=== PATIENT | female | born 1985 | race Caucasian/White ===

== ENCOUNTER 2016-06-11 13:34 | Emergency (ER) | payer OTHER ==
--- NOTE | 2016-06-11 16:31 | DIAGNOSTIC IMAGING REPORT ---
PROCEDURE: US OB 1ST TRIMESTER W/TRANSVAG INDICATION: PAIN TECHNIQUE: Savage scale, color, and spectral Doppler transabdominal and endovaginal sonographic images of the first trimester gravid uterus were obtained. COMPARISON: None. FINDINGS: TRANSABDOMINAL SCANS: Normal kidneys. No pelvic mass. TRANSVAGINAL SCANS: The uterus measures 7 x 4 x 5.6 cm. Endometrium measures 10 mm and is avascular. No evidence of a gestational sac or pole. 1.9 cm left ovarian corpus luteum cyst. Right ovary measures 2.7 x 1.3 x 2.1 cm with peripheral follicles. There is vascular flow to both ovaries. No free fluid the cul-de-sac. IMPRESSION: 1. No evidence of an intrauterine gestational sac or adnexal mass. Correlate with Beta hCG.
--- NOTE | 2016-06-11 16:45 | ED ORDER SUMMARY ---
..... Patient: SAMI ARANDA OrderSheet [facility] VisitID: [id number] [address] [place] [address] 31y, F Registration Date/Time: 06/11/2016 ORDER SHEET Weight: 77.1 kg (stated) Allergies: No Known Drug Allergy GENERAL ORDERS: Wet Prep (Cervix) (cervix) Urgent (13:53 06/11/2016 Veto STRICKLAND) (Ack 13:59 LTapper) (15:31 LSshaunivan R.N.) GC/Chlamydia (Cervix) (cervix) Urgent (13:53 06/11/2016 Veto STRICKLAND) (Ack 13:59 LTapper) (15:31 LSshaunivan R.N.) CBC w Diff Urgent (13:55 06/11/2016 Veto STRICKLAND) (Ack 13:59 LTapper) (18:23 Valentin R.N.) CMP Urgent (13:55 06/11/2016 Veto STRICKLAND) (Ack 13:59 LTapper) (14:17 Danial R.N.) UA-Culture if indicated Urgent (13:55 06/11/2016 Veto STRICKLAND) (Ack 13:59 LTapper) (14:17 Danial R.N.) PT with INR Urgent (13:55 06/11/2016 Veto STRICKLAND) (Ack 13:59 LTapper) (14:17 Danial R.N.) PTT Urgent (13:55 06/11/2016 Veto STRICKLAND) (Ack 13:59 LTapper) (14:17 Danial R.N.) Amylase Urgent (13:55 06/11/2016 Veto STRICKLAND) (Ack 13:59 LTapper) (14:17 Danial R.N.) Lipase Urgent (13:55 06/11/2016 Veto STRICKLAND) (Ack 13:59 LTapper) (14:17 Danial R.N.) Type & Rh Urgent (13:55 06/11/2016 Veto STRICKLAND) (Ack 13:59 LTapper) (14:17 Danial R.N.) Serum Quantitative Urgent (13:55 06/11/2016 Veto STRICKLAND) (Ack 13:59 LTapper) (14:17 Danial PeaceN.) Pelvic Exam Setup (13:55 06/11/2016 Veto STRICKLAND) (14:16 Danial Anguiano) US OB 1st Trimester w Transvag (25 April 2016) Urgent (15:26 06/11/2016 Veto STRICKLAND) (15:29 LTapper) MEDICATION ORDERS: IV FLUIDS: IV Saline Lock (13:55 06/11/2016 Veto STRICKLAND) (Ack 14:06 Danial R.N.) (15:06 DDcoty R.N.) Dilaudid IV 0.5 mg (HIGH ALERT MEDICATION, NOW) (14:57 06/11/2016 Veto STRICKLAND) (15:06 DDeaanthony R.N.) Zofran IV 4 mg (NOW) (14:57 06/11/2016 Veto STRICKLAND) (15:06 DDean R.N.) ORDER SHEET NOTES: [Electronically signed by Jazmyn Gonzalez R.N. (18:23 06/11/2016)] [Electronically signed by Juan Francisco Abdi MD (23:19 06/15/2016)] [Electronically locked/signed by Jazmyn Gonzalez R.N. (18:23 06/11/2016)]
--- NOTE | 2016-06-11 16:45 | ED NURSING NOTES ---
Clinical Report - Nurses [facility] [address] [place] [place] [address] 06/11/2016 13:38 Patient: SAMI ARANDA TRIAGE Triage time 13:49. Acuity: LEVEL 3. Chief Complaint: ABDOMINAL PAIN and SPOTTING. Alert. No acute distress. ( Pt. states, " I am having a miscarrage. This started on tue and I already saw my doctor for it, but I am here because of the cramping."). SEPSIS SCREEN: Sepsis Screen. Negative (no infection suspected/documented). RAHAT COMA SCORE: Rahat Coma Scale: 15- eyes open spontaneously (4); best verbal response- oriented x 4 (5); best motor response- obeys commands (6). --13:53 Rhonda Ware R.N. 13:47 06/11/16. BP: 141/90. HR: 84. RR: 15. O2 saturation: 100%. Temp: 98.1 F. Pain level now: 8/10. It has been waxing/waning. --13:53 Rhonda Ware R.N. Weight: 77.1 kg stated. Height/Length: 67 inches Per Patient. BMI: 26.6. --13:48 Rhonda Ware R.N. Medications Zoloft Oral 50 mg, daily. --13:51 Rhonda Ware R.N. TraZODone HCl Oral 25mg , at bedtime. --13:51 Rhonda Ware R.N. Allergies No Known Drug Allergy. --13:51 Rhonda Ware R.N. History Arrived by private vehicle. Historian: patient. Unaccompanied. Primary physician (Murali). Onset. (2 days ago). Treatment RADIO DISPATCHER: (advil around 0600 today). PAST MEDICAL HX: Immunizations: up-to-date. OB history: G 3; P 1; Ab 2. SOCIAL HX: Smoker- current status unknown. History of drug use. (hx of of opioid addiction: pt states, "I have been clean for 10 years."). No alcohol use. No infectious disease exposure. ABUSE ASSESSMENT: No report of abuse. NUTRITIONAL RISK ASSESSMENT: The nutritional risk assessment revealed no deficiencies. FUNCTIONAL ASSESSMENT: Functional assessment: no impairments noted. LEARNING NEEDS ASSESSMENT: The learning needs assessment revealed no barriers. --13:53 Rhonda Ware R.N. PROBLEMS: Contusion. --13:51 Rhonda Ware R.N. Insomnia. --13:51 Rhonda Ware R.N. ADDITIONAL SURGERIES: . Dental Surgery. --13:52 Rhonda Ware R.N. Interventions ID band on patient. Ambulatory. --13:53 Rhonda Ware R.N. PHYSICAL ASSESSMENT Ambulatory to room. GENERAL / NEURO / PSYCH: Alert. Appears in no acute distress. HEENT: Mucous membranes are pink. RESPIRATORY: Respirations not labored. CVS: Capillary refill less than 2 seconds. GI / : Abdomen soft and nontender. SKIN: Skin is warm and dry. --13:54 Rhonda Ware R.N. NURSING PROGRESS NOTES Patient gowned. Two patient identifiers checked. Call light placed in reach. Side rails up x 2. Bed placed in lowest position. Brakes of bed on. Patient ready for evaluation- chart flagged. --13:54 Rhonda Ware R.N. 14:16 06/11/2016 Site #1 started via IV in the right antecubital space with an 20g angiocath, with aseptic technique and good blood return; one attempt. Blood drawn: rainbow set. Labeled in the presence of the patient and sent to the lab. Saline lock flushed with 10 mL saline. --14:16 Rhonda Ware R.N. Patient ID band checked for patient name, birthdate and medical record number: patient confirmed. Instructions provided to collect clean catch urine and patient verbalized understanding. Clean catch urine collected with return of yellow-colored clear urine; sample sent to lab for urinalysis. Specimen labeled in the presence of the patient. --14:16 Rhonda Ware R.N. 15:06 06/11/2016 Dilaudid (HYDROmorphone HCl PF) IVP 0.5 mg given over 1 minute(s) via site #1. Sedative warning given to the patient. IV patency established. IV site checked: no pain, redness, or swelling. IV flushed thoroughly pre- and post-medication administration. IVP given by RN. --15:06 Charo Cesar R.N. 15:06 06/11/2016 Zofran (Ondansetron HCl) IVP 4 mg given over 1 minute(s) via site #1. IV patency established. IV site checked: no pain, redness, or swelling. IV flushed thoroughly pre- and post-medication administration. IVP given by RN. --15:06 Charo Cesar R.N. 15:30 06/11/16. PELVIC EXAM: Pelvic exam performed by ED physician. Assisted by one nurse. Preparation: pelvic tray; patient placed in lithotomy position. Procedure. Specimens collected and sent to lab: chlamydia and wet prep. Status post-procedure: she was stable. Total time of assist / procedure: 15 minutes. --15:30 Cat Callahan R.N. 15:49 06/11/2016 Dilaudid (HYDROmorphone HCl PF) IVP 0.5 mg given over 1 minute(s) via site #1. Confirmed 5 rights and sedative warning given to the patient. IV flushed thoroughly pre- and post-medication administration (verbal order from Dr Abdi). --15:49 Cat Callahan R.N. 15:49 06/11/16. ( ULTRASOUND IN ROOM). --15:49 Cat Callahan R.N. Patient informed about reason for wait and about plan of care. --16:29 Rhonda Ware R.N. 16:29 06/11/16. BP: 128/83. HR: 75. RR: 16. O2 saturation: 97%. Pain level now 4/10. --16:29 Rhonda Ware R.N. 16:50. Reassessment after procedure. She is resting quietly. Overall patient status is the same- she states feels the same. SKIN: Skin is warm and dry. --16:58 Jazmyn Gonzalez R.N. DISPOSITION / DISCHARGE Departure time: 1650. Condition at departure: stable. No learning barriers present. Discharge instructions provided and reviewed with the patient and spouse. Reviewed medication(s). Prescription(s) given to the patient. Patient and spouse verbalized understanding. Written instructions provided in [place]. The patient was discharged home and accompanied by spouse. She left the Emergency Department ambulatory and via private vehicle. Spouse driving. FALL RISK ASSESSMENT: Fall risk assessment completed. No fall risk identified. --16:57 Jazmyn Gonzalez R.N. 16:55 06/11/16. BP: 119/78. HR: 82. RR: 18. O2 saturation: 96%. Pain level now: 0/10. --16:57 Jazmyn Gonzalez R.N. 16:50 06/11/2016 Site #1 removed upon discharge. Catheter intact. Bandaid applied. --16:58 Jazmyn Gonzalez R.N. Locked/Released at 06/11/2016 18:23 by Jazmyn Gonzalez R.N.
--- NOTE | 2016-06-11 16:45 | ED CLINICAL REPORT ---
Clinical Report - Physicians/Mid Levels [facility] [address] [place] [address] 06/11/2016 13:38 Patient: SAMI ARANDA Time Seen: 13:52. Arrived- By private vehicle. Historian- patient. HISTORY OF PRESENT ILLNESS Chief Complaint: PELVIC PAIN and VAGINAL BLEEDING. This started about 2 days ago and still present. It was gradual in onset and has been constant and waxing/waning. The symptoms are described as moderate. The patient has had severe, dull, crampy pelvic pain (since this morning). She has had mild lower back pain and abnormal bleeding. No pain with urination, urinary frequency, urgency of urination or hematuria. Last normal menstrual period- 25 Apr 2016. Does not use control measures. (The patient believes that she is having a miscarriage. Yesterday she noticed some vaginal bleeding and says that she "saw the baby." However, she is concerned today because her pain became much more pronounced and severe.). Currently . In 1st trimester. Recently diagnosed. Has had care by private doctor. G 3. P 1. Receiving care. REVIEW OF SYSTEMS No chills, fever, sweats, calf pain or chest pain. No cough, difficulty breathing, pedal edema, palpitations or black stools. No bloody stools, constipation, diarrhea, nausea or vomiting. No urinary problems. All systems otherwise negative, except as recorded above. PAST HISTORY Problems: Melanoma. Insomnia. OB History. Contusion. Additional Surgeries: . Dental Surgery. L axiallary lymph node biopsy. Melanoma resection L breast. Medications: TraZODone HCl Oral 25mg , at bedtime. Zoloft Oral 50 mg, daily. Allergies: No Known Drug Allergy. SOCIAL HISTORY Never smoker. History of drug use "clean for 10 years". Is a recovering addict. No alcohol use. She lives with spouse. Has good social support. FAMILY HISTORY No significant family medical history. ADDITIONAL NOTES The nursing notes have been reviewed. PHYSICAL EXAM Vital Signs: 06/11/2016 13:47 BP: 141/90. HR: 84. RR: 15. O2 saturation: 100%. Temp: 98.1 F. Pain level now: 12/02. Have been reviewed. Appearance: Alert. ENT: Pharynx normal. Neck: Neck supple. CVS: Heart sounds normal. Respiratory: No respiratory distress. Breath sounds normal. Abdomen: Soft and nontender. Bowel sounds normal. No organomegaly. No mass. Back: Normal external inspection. No CVA tenderness. : External inspection normal. Moderate vaginal bleeding, consisting of bright red blood, via the cervical os. No cervical dilation. Moderate right adnexal tenderness. No cervical motion tenderness. (female third mate present). Skin: Skin warm and dry. Normal skin color. Normal skin turgor. Extremities: No calf tenderness. No lower extremity edema. LABS, X-RAYS, AND EKG Pelvic Sonogram: No cardiac activity visualized. A cyst in the left ovary is present. discussed with the US tech. No intrauterine . The study was independently viewed by me. Laboratory Tests: UA-Culture if indicated: (RYAN: 06/11/2016 14:10) ( [facility] 06/11/[place] 14:42) Final results Test Result Flag Units (Reference) URINE COLOR YELLOW URINE APPEARANCE CLEAR URINE GLUCOSE NEGATIVE (NEGATIVE) URINE BILIRUBIN NEGATIVE (NEGATIVE) URINE KETONE NEGATIVE (NEGATIVE) URINE SPECIFIC GRAVITY <= 1.005 L (1.010-1.030) URINE PH 5.5 (5.0-8.0) URINE PROTEIN NEGATIVE (NEGATIVE) URINE UROBILINOGEN 0.2 EU/dL (0.2-1.0) URINE NITRITE NEGATIVE (NEGATIVE) URINE BLOOD 2+ (NEGATIVE) URINE LEUK ESTERASE NEGATIVE (NEGATIVE) URINE RBC 1-3 rbc/hpf (0-1) URINE WBC NONE SEEN wbc/hpf (0-1) URINE EPITHELIAL CELLS 1-3 EPI/hpf (0-5) URINE BACTERIA NONE SEEN (NONE SEEN) URINE COMMENT CULT NOT INDICATED URINE CULTURES ARE SET-UP BASED ON THE FOLLOWING CRITERIA:POSITIVE NITRITEPOSITIVE LEUKOCYTE ESTERASEGREATER THAN 10 WHITE BLOOD CELLSMODERATE (2+) OR GREATER BACTERIA CBC w Diff: (RYAN: 06/11/2016 14:10) ( [facility] 06/11/2016 14:23) Final results Test Result Flag Units (Reference) WHITE BLOOD COUNT 5.8 K/uL (4.5-11.5) RED BLOOD COUNT 4.40 M/uL (4.00-5.20) HEMOGLOBIN 13.3 gm/dL (12.0-16.0) HEMATOCRIT 39.2 % (36.0-46.0) MEAN CELL VOLUME 89 fL (80-100) MEAN CORPUSCULAR HGB 30 pg (26-34) MEAN CORPUSCULAR HGB CONC 34 g/dL (31-37) RED CELL DISTRIBUTION WIDTH 12.6 % (11.6-14.8) PLATELET COUNT 246 K/uL (150-400) NEUTROPHIL % 51.7 % (50-75) LYMPH % 38.5 % (25-40) MONO % 6.6 % (3-14) EOSINOPHIL % 2.5 % (0-4) BASOPHIL % 0.7 % (0-2) PT with INR: (RYAN: 06/11/2016 14:10) ( [facility] 06/11/2016 14:29) Final results Test Result Flag Units (Reference) INR 0.9 (0.8-1.2) Low Intensity Therapy: INR 1.5-2.0 PT range 18.5-23.1Mod.Intensity Therapy: INR 2.0-3.0 PT range 23.1-31.5High Intensity Therapy: INR 2.5-3.5 PT range 27.4-35.5High Intensity Therapy 2: INR 3.0-4.0 PT range 31.5-39.3 APTT 27 SECONDS (24-34) CMP: (RYAN: 06/11/2016 14:10) ( [facility] 06/11/2016 14:44) Final results Test Result Flag Units (Reference) GLUCOSE 89 mg/dL (70-110) BUN 6 L mg/dL (7-18) CREATININE 0.6 mg/dL (0.6-1.3) Estimated GFR >60 mL/min Estimated GFR- >60 mL/min Note: Persistent reduction over 3 months in eGFR<60 mL/min/1.73 m2 defines CKD. Patients with eGFR values>=60 mL/min/1.73 m2 may also have CKD if evidence ofpersistent proteinuria. Additional information may be foundat www.kidney.org. SODIUM 141 mmol/L (136-145) POTASSIUM 3.7 mmol/L (3.5-5.1) CHLORIDE 105 mmol/L (98-107) CARBON DIOXIDE 25 mmol/L (21-32) CALCIUM 9.0 mg/dL (8.5-10.1) TOTAL PROTEIN 7.4 g/dL (6.4-8.2) ALBUMIN 4.1 g/dL (3.3-5.0) BILIRUBIN, TOTAL 0.4 mg/dL (0.0-1.0) ALKALINE PHOSPHATASE 67 U/L (46-116) AST (SGOT) 19 U/L (15-37) ALT (SGPT) 31 U/L (12-78) LIPASE 224 U/L (73-393) AMYLASE 52 U/L (25-115) BETA HCG, QUANTITATIVE 669 mIU/mL REFERENCE RANGE:Adult Males: <2 mIU/mLNon- Females: <6 mIU/mL Females:Approximate Approximate hCGGestational Age Range (mIU/mL) 0-1 week 0-501-2 weeks 40-3002-3 weeks 100-19562-1 weeks 500-86687-9 months 5,000-200,0002-3 months 10,000-100,0002nd trimester 3,000-50,0003rd trimester 1,000-50,000 Wet Prep: (RYNA: 06/11/2016 15:24) ( [facility] 06/11/2016 15:42) Final results SPECIMEN DESCRIPTION: CERVIX Test Result Flag Units (Reference) WET MOUNT CLUE CELLS:: NONE EPITHELIAL CELLS: MODERATE -- SOURCE?: CERVIX WHITE BLOOD CELLS: NONE TRICHOMONAS:: NONE -- YEAST:: NONE Type & Rh: (RYAN: 06/11/2016 14:10) ( [facility] 06/11/2016 14:35) Final results Test Result Flag Units (Reference) PATIENT BLOOD TYPE B Positive . PROGRESS AND PROCEDURES Course of Care: Dr. Pérez says that her quantitative hCG was 2483 yesterday. He also says that she has not had an ultrasound during this . Patient is stable. Discussed case with on-call health care provider, (Dr. Pérez for [facility]). Reviewed test results and need for additional work-up. Agreed upon treatment plan and need for patient follow-up. Health care provider will see patient in office. Refers case to other health care provider. Patient/family counseled. Old medical records ordered. Disposition: Discharged. Condition: stable. CLINICAL IMPRESSION Complete spontaneous (miscarriage). INSTRUCTIONS No driving or operating machinery while taking medication. Sedative medication was given during your visit. Drink plenty of fluids. Warnings: Further evaluation is necessary. GENERAL WARNINGS: Return or contact your physician immediately if your condition worsens or changes unexpectedly, if not improving as expected, or if other problems arise. Prescription Medications: Tylenol with Codeine #3 (30 mg / 300 mg): take 1 tablet every 4 hours as needed for pain. Dispense fifteen (15). No refills. Substitution is permissible. Follow-up: Follow up with your doctor Dr. Gabriella Carrion - [address] [place] [id number] Phone: Tuesday in three days. Call for an appointment. Understanding of the discharge instructions verbalized by patient. (Electronically signed by Juan Francisco Abdi MD 06/15/2016 23:19)
--- NOTE | 2016-06-11 16:45 | ED ORDER SUMMARY ---
..... Patient: SAMI ARANDA OrderSheet [facility] VisitID: [id number] [address] [place] [address] 31y, F Registration Date/Time: 06/11/2016 ORDER SHEET Weight: 77.1 kg (stated) Allergies: No Known Drug Allergy GENERAL ORDERS: Wet Prep (Cervix) (cervix) Urgent (13:53 06/11/2016 Veto STRICKLAND) (Ack 13:59 LTapper) (15:31 LSshaunivan R.N.) GC/Chlamydia (Cervix) (cervix) Urgent (13:53 06/11/2016 Veto STRICKLAND) (Ack 13:59 LTapper) (15:31 LSshaunivan R.N.) CBC w Diff Urgent (13:55 06/11/2016 Veto STRICKLAND) (Ack 13:59 LTapper) (18:23 Valentin R.N.) CMP Urgent (13:55 06/11/2016 Veto STRICKLAND) (Ack 13:59 LTapper) (14:17 Danial R.N.) UA-Culture if indicated Urgent (13:55 06/11/2016 Veto STRICKLAND) (Ack 13:59 LTapper) (14:17 Danial R.N.) PT with INR Urgent (13:55 06/11/2016 Veto STRICKLAND) (Ack 13:59 LTapper) (14:17 Danial R.N.) PTT Urgent (13:55 06/11/2016 Veto STRICKLAND) (Ack 13:59 LTapper) (14:17 Danial R.N.) Amylase Urgent (13:55 06/11/2016 Veto STRICKLAND) (Ack 13:59 LTapper) (14:17 Danial R.N.) Lipase Urgent (13:55 06/11/2016 Veto STRICKLAND) (Ack 13:59 LTapper) (14:17 Danial R.N.) Type & Rh Urgent (13:55 06/11/2016 Veto STRICKLAND) (Ack 13:59 LTapper) (14:17 Danial R.N.) Serum Quantitative Urgent (13:55 06/11/2016 Veto STRICKLAND) (Ack 13:59 LTapper) (14:17 Danial PeaceN.) Pelvic Exam Setup (13:55 06/11/2016 Veto STRICKLAND) (14:16 Danial Anguiano) US OB 1st Trimester w Transvag (25 April 2016) Urgent (15:26 06/11/2016 Veto STRICKLAND) (15:29 LTapper) MEDICATION ORDERS: IV FLUIDS: IV Saline Lock (13:55 06/11/2016 Veto STRICKLAND) (Ack 14:06 Danial R.N.) (15:06 DDcoty R.N.) Dilaudid IV 0.5 mg (HIGH ALERT MEDICATION, NOW) (14:57 06/11/2016 Veto STRICKLAND) (15:06 DDeaanthony R.N.) Zofran IV 4 mg (NOW) (14:57 06/11/2016 Veto STRICKLAND) (15:06 DDean R.N.) ORDER SHEET NOTES: [Electronically signed by Jazmyn Gonzalez R.N. (18:23 06/11/2016)] [Electronically signed by Juan Francisco Abdi MD (23:19 06/15/2016)] [Electronically locked/signed by Jazmyn Gonzalez R.N. (18:23 06/11/2016)]
--- NOTE | 2016-06-11 16:45 | ED CLINICAL REPORT ---
Clinical Report - Physicians/Mid Levels [facility] [address] [place] [address] 06/11/2016 13:38 Patient: SAMI ARANDA Time Seen: 13:52. Arrived- By private vehicle. Historian- patient. HISTORY OF PRESENT ILLNESS Chief Complaint: PELVIC PAIN and VAGINAL BLEEDING. This started about 2 days ago and still present. It was gradual in onset and has been constant and waxing/waning. The symptoms are described as moderate. The patient has had severe, dull, crampy pelvic pain (since this morning). She has had mild lower back pain and abnormal bleeding. No pain with urination, urinary frequency, urgency of urination or hematuria. Last normal menstrual period- 25 Apr 2016. Does not use control measures. (The patient believes that she is having a miscarriage. Yesterday she noticed some vaginal bleeding and says that she "saw the baby." However, she is concerned today because her pain became much more pronounced and severe.). Currently . In 1st trimester. Recently diagnosed. Has had care by private doctor. G 3. P 1. Receiving care. REVIEW OF SYSTEMS No chills, fever, sweats, calf pain or chest pain. No cough, difficulty breathing, pedal edema, palpitations or black stools. No bloody stools, constipation, diarrhea, nausea or vomiting. No urinary problems. All systems otherwise negative, except as recorded above. PAST HISTORY Problems: Melanoma. Insomnia. OB History. Contusion. Additional Surgeries: . Dental Surgery. L axiallary lymph node biopsy. Melanoma resection L breast. Medications: TraZODone HCl Oral 25mg , at bedtime. Zoloft Oral 50 mg, daily. Allergies: No Known Drug Allergy. SOCIAL HISTORY Never smoker. History of drug use "clean for 10 years". Is a recovering addict. No alcohol use. She lives with spouse. Has good social support. FAMILY HISTORY No significant family medical history. ADDITIONAL NOTES The nursing notes have been reviewed. PHYSICAL EXAM Vital Signs: 06/11/2016 13:47 BP: 141/90. HR: 84. RR: 15. O2 saturation: 100%. Temp: 98.1 F. Pain level now: 12/02. Have been reviewed. Appearance: Alert. ENT: Pharynx normal. Neck: Neck supple. CVS: Heart sounds normal. Respiratory: No respiratory distress. Breath sounds normal. Abdomen: Soft and nontender. Bowel sounds normal. No organomegaly. No mass. Back: Normal external inspection. No CVA tenderness. : External inspection normal. Moderate vaginal bleeding, consisting of bright red blood, via the cervical os. No cervical dilation. Moderate right adnexal tenderness. No cervical motion tenderness. (female donor services coordinator present). Skin: Skin warm and dry. Normal skin color. Normal skin turgor. Extremities: No calf tenderness. No lower extremity edema. LABS, X-RAYS, AND EKG Pelvic Sonogram: No cardiac activity visualized. A cyst in the left ovary is present. discussed with the US tech. No intrauterine . The study was independently viewed by me. Laboratory Tests: UA-Culture if indicated: (RYAN: 06/11/2016 14:10) ( [facility] 06/11/2016 14:42) Final results Test Result Flag Units (Reference) URINE COLOR YELLOW URINE APPEARANCE CLEAR URINE GLUCOSE NEGATIVE (NEGATIVE) URINE BILIRUBIN NEGATIVE (NEGATIVE) URINE KETONE NEGATIVE (NEGATIVE) URINE SPECIFIC GRAVITY <= 1.005 L (1.010-1.030) URINE PH 5.5 (5.0-8.0) URINE PROTEIN NEGATIVE (NEGATIVE) URINE UROBILINOGEN 0.2 EU/dL (0.2-1.0) URINE NITRITE NEGATIVE (NEGATIVE) URINE BLOOD 2+ (NEGATIVE) URINE LEUK ESTERASE NEGATIVE (NEGATIVE) URINE RBC 1-3 rbc/hpf (0-1) URINE WBC NONE SEEN wbc/hpf (0-1) URINE EPITHELIAL CELLS 1-3 EPI/hpf (0-5) URINE BACTERIA NONE SEEN (NONE SEEN) URINE COMMENT CULT NOT INDICATED URINE CULTURES ARE SET-UP BASED ON THE FOLLOWING CRITERIA:POSITIVE NITRITEPOSITIVE LEUKOCYTE ESTERASEGREATER THAN 10 WHITE BLOOD CELLSMODERATE (2+) OR GREATER BACTERIA CBC w Diff: (RYAN: 06/11/2016 14:10) ( [facility] 06/11/2016 14:23) Final results Test Result Flag Units (Reference) WHITE BLOOD COUNT 5.8 K/uL (4.5-11.5) RED BLOOD COUNT 4.40 M/uL (4.00-5.20) HEMOGLOBIN 13.3 gm/dL (12.0-16.0) HEMATOCRIT 39.2 % (36.0-46.0) MEAN CELL VOLUME 89 fL (80-100) MEAN CORPUSCULAR HGB 30 pg (26-34) MEAN CORPUSCULAR HGB CONC 34 g/dL (31-37) RED CELL DISTRIBUTION WIDTH 12.6 % (11.6-14.8) PLATELET COUNT 246 K/uL (150-400) NEUTROPHIL % 51.7 % (50-75) LYMPH % 38.5 % (25-40) MONO % 6.6 % (3-14) EOSINOPHIL % 2.5 % (0-4) BASOPHIL % 0.7 % (0-2) PT with INR: (RYAN: 06/11/2016 14:10) ( [facility] 06/11/2016 14:29) Final results Test Result Flag Units (Reference) INR 0.9 (0.8-1.2) Low Intensity Therapy: INR 1.5-2.0 PT range 18.5-23.1Mod.Intensity Therapy: INR 2.0-3.0 PT range 23.1-31.5High Intensity Therapy: INR 2.5-3.5 PT range 27.4-35.5High Intensity Therapy 2: INR 3.0-4.0 PT range 31.5-39.3 APTT 27 SECONDS (24-34) CMP: (RYAN: 06/11/2016 14:10) ( [facility] 06/11/2016 14:44) Final results Test Result Flag Units (Reference) GLUCOSE 89 mg/dL (70-110) BUN 6 L mg/dL (7-18) CREATININE 0.6 mg/dL (0.6-1.3) Estimated GFR >60 mL/min Estimated GFR- >60 mL/min Note: Persistent reduction over 3 months in eGFR<60 mL/min/1.73 m2 defines CKD. Patients with eGFR values>=60 mL/min/1.73 m2 may also have CKD if evidence ofpersistent proteinuria. Additional information may be foundat www.[email or web address].org. SODIUM 141 mmol/L (136-145) POTASSIUM 3.7 mmol/L (3.5-5.1) CHLORIDE 105 mmol/L (98-107) CARBON DIOXIDE 25 mmol/L (21-32) CALCIUM 9.0 mg/dL (8.5-10.1) TOTAL PROTEIN 7.4 g/dL (6.4-8.2) ALBUMIN 4.1 g/dL (3.3-5.0) BILIRUBIN, TOTAL 0.4 mg/dL (0.0-1.0) ALKALINE PHOSPHATASE 67 U/L (46-116) AST (SGOT) 19 U/L (15-37) ALT (SGPT) 31 U/L (12-78) LIPASE 224 U/L (73-393) AMYLASE 52 U/L (25-115) BETA HCG, QUANTITATIVE 669 mIU/mL REFERENCE RANGE:Adult Males: <2 mIU/mLNon- Females: <6 mIU/mL Females:Approximate Approximate hCGGestational Age Range (mIU/mL) 0-1 week 0-501-2 weeks 40-3002-3 weeks 100-46049-8 weeks 500-05755-3 months 5,000-200,0002-3 months 10,000-100,0002nd trimester 3,000-50,0003rd trimester 1,000-50,000 Wet Prep: (RYAN: 06/11/2016 15:24) ( [facility] 06/11/2016 15:42) Final results SPECIMEN DESCRIPTION: CERVIX Test Result Flag Units (Reference) WET MOUNT CLUE CELLS:: NONE EPITHELIAL CELLS: MODERATE -- SOURCE?: CERVIX WHITE BLOOD CELLS: NONE TRICHOMONAS:: NONE -- YEAST:: NONE Type & Rh: (RYAN: 06/11/2016 14:10) ( [facility] 06/11/2016 14:35) Final results Test Result Flag Units (Reference) PATIENT BLOOD TYPE B Positive . PROGRESS AND PROCEDURES Course of Care: Dr. Pérez says that her quantitative hCG was 2483 yesterday. He also says that she has not had an ultrasound during this . Patient is stable. Discussed case with on-call health care provider, (Dr. Pérez for [facility]). Reviewed test results and need for additional work-up. Agreed upon treatment plan and need for patient follow-up. Health care provider will see patient in office. Refers case to other health care provider. Patient/family counseled. Old medical records ordered. Disposition: Discharged. Condition: stable. CLINICAL IMPRESSION Complete spontaneous (miscarriage). INSTRUCTIONS No driving or operating machinery while taking medication. Sedative medication was given during your visit. Drink plenty of fluids. Warnings: Further evaluation is necessary. GENERAL WARNINGS: Return or contact your physician immediately if your condition worsens or changes unexpectedly, if not improving as expected, or if other problems arise. Prescription Medications: Tylenol with Codeine #3 (30 mg / 300 mg): take 1 tablet every 4 hours as needed for pain. Dispense fifteen (15). No refills. Substitution is permissible. Follow-up: Follow up with your doctor Dr. Gabriella Carrion - [address] [place] [id number] Phone: Tuesday in three days. Call for an appointment. Understanding of the discharge instructions verbalized by patient. (Electronically signed by Juan Francisco Abdi MD 06/15/2016 23:19)
--- NOTE | 2016-06-11 16:45 | ED NURSING NOTES ---
Clinical Report - [facility] [address] [place] [address] 06/11/2016 13:38 Patient: SAMI ARANDA TRIAGE Triage time 13:49. Acuity: LEVEL 3. Chief Complaint: ABDOMINAL PAIN and SPOTTING. Alert. No acute distress. ( Pt. states, " I am having a miscarrage. This started on tue and I already saw my doctor for it, but I am here because of the cramping."). SEPSIS SCREEN: Sepsis Screen. Negative (no infection suspected/documented). RAHAT COMA SCORE: Rahat Coma Scale: 15- eyes open spontaneously (4); best verbal response- oriented x 4 (5); best motor response- obeys commands (6). --13:53 Rhonda Ware R.N. 13:47 06/11/16. BP: 141/90. HR: 84. RR: 15. O2 saturation: 100%. Temp: 98.1 F. Pain level now: 8/10. It has been waxing/waning. --13:53 Rhonda Ware R.N. Weight: 77.1 kg stated. Height/Length: 67 inches Per Patient. BMI: 26.6. --13:48 Rhonda Ware R.N. Medications Zoloft Oral 50 mg, daily. --13:51 Rhonda Ware R.N. TraZODone HCl Oral 25mg , at bedtime. --13:51 Rhonda Ware R.N. Allergies No Known Drug Allergy. --13:51 Rhonda Ware R.N. History Arrived by private vehicle. Historian: patient. Unaccompanied. Primary physician ([facility]). Onset. (2 days ago). Treatment VIDEO EDITOR: (advil around 0600 today). PAST MEDICAL HX: Immunizations: up-to-date. OB history: G 3; P 1; Ab 2. SOCIAL HX: Smoker- current status unknown. History of drug use. (hx of of opioid addiction: pt states, "I have been clean for 10 years."). No alcohol use. No infectious disease exposure. ABUSE ASSESSMENT: No report of abuse. NUTRITIONAL RISK ASSESSMENT: The nutritional risk assessment revealed no deficiencies. FUNCTIONAL ASSESSMENT: Functional assessment: no impairments noted. LEARNING NEEDS ASSESSMENT: The learning needs assessment revealed no barriers. --13:53 Rhonda Ware R.N. PROBLEMS: Contusion. --13:51 Rhonda Ware R.N. Insomnia. --13:51 hRonda Ware R.N. ADDITIONAL SURGERIES: . Dental Surgery. --13:52 Rhonda Ware R.N. Interventions ID band on patient. Ambulatory. --13:53 Rhonda Ware R.N. PHYSICAL ASSESSMENT Ambulatory to room. GENERAL / NEURO / PSYCH: Alert. Appears in no acute distress. HEENT: Mucous membranes are pink. RESPIRATORY: Respirations not labored. CVS: Capillary refill less than 2 seconds. GI / : Abdomen soft and nontender. SKIN: Skin is warm and dry. --13:54 Rhonda Ware R.N. NURSING PROGRESS NOTES Patient gowned. Two patient identifiers checked. Call light placed in reach. Side rails up x 2. Bed placed in lowest position. Brakes of bed on. Patient ready for evaluation- chart flagged. --13:54 Rhonda Ware R.N. 14:16 06/11/2016 Site #1 started via IV in the right antecubital space with an 20g angiocath, with aseptic technique and good blood return; one attempt. Blood drawn: rainbow set. Labeled in the presence of the patient and sent to the lab. Saline lock flushed with 10 mL saline. --14:16 Rhonda Ware R.N. Patient ID band checked for patient name, birthdate and medical record number: patient confirmed. Instructions provided to collect clean catch urine and patient verbalized understanding. Clean catch urine collected with return of yellow-colored clear urine; sample sent to lab for urinalysis. Specimen labeled in the presence of the patient. --14:16 Rhonda Ware R.N. 15:06 06/11/2016 Dilaudid (HYDROmorphone HCl PF) IVP 0.5 mg given over 1 minute(s) via site #1. Sedative warning given to the patient. IV patency established. IV site checked: no pain, redness, or swelling. IV flushed thoroughly pre- and post-medication administration. IVP given by RN. --15:06 Charo Cesar R.N. 15:06 06/11/2016 Zofran (Ondansetron HCl) IVP 4 mg given over 1 minute(s) via site #1. IV patency established. IV site checked: no pain, redness, or swelling. IV flushed thoroughly pre- and post-medication administration. IVP given by RN. --15:06 Charo Cesar R.N. 15:30 06/11/16. PELVIC EXAM: Pelvic exam performed by ED physician. Assisted by one nurse. Preparation: pelvic tray; patient placed in lithotomy position. Procedure. Specimens collected and sent to lab: chlamydia and wet prep. Status post-procedure: she was stable. Total time of assist / procedure: 15 minutes. --15:30 Cat Callahan R.N. 15:49 06/11/2016 Dilaudid (HYDROmorphone HCl PF) IVP 0.5 mg given over 1 minute(s) via site #1. Confirmed 5 rights and sedative warning given to the patient. IV flushed thoroughly pre- and post-medication administration (verbal order from Dr Abdi). --15:49 Cat Callahan R.N. 15:49 06/11/16. ( ULTRASOUND IN ROOM). --15:49 Cat Callahan R.N. Patient informed about reason for wait and about plan of care. --16:29 Rhonda Ware R.N. 16:29 06/11/16. BP: 128/83. HR: 75. RR: 16. O2 saturation: 97%. Pain level now 4/10. --16:29 Rhonda Ware R.N. 16:50. Reassessment after procedure. She is resting quietly. Overall patient status is the same- she states feels the same. SKIN: Skin is warm and dry. --16:58 Jazmyn Gonzalez R.N. DISPOSITION / DISCHARGE Departure time: 1650. Condition at departure: stable. No learning barriers present. Discharge instructions provided and reviewed with the patient and spouse. Reviewed medication(s). Prescription(s) given to the patient. Patient and spouse verbalized understanding. Written instructions provided in Fijian. The patient was discharged home and accompanied by spouse. She left the Emergency Department ambulatory and via private vehicle. Spouse driving. FALL RISK ASSESSMENT: Fall risk assessment completed. No fall risk identified. --16:57 Jazmyn Gonzalez R.N. 16:55 06/11/16. BP: 119/78. HR: 82. RR: 18. O2 saturation: 96%. Pain level now: 0/10. --16:57 Jazmyn Gonzalez R.N. 16:50 06/11/2016 Site #1 removed upon discharge. Catheter intact. Bandaid applied. --16:58 Jazmyn Gonzalez R.N. Locked/Released at 06/11/2016 18:23 by Jazmyn Gonzalez R.N.
--- NOTE | 2016-06-15 23:19 | ED DISCHARGE INSTRUCTIONS ---
Patient: SAMI ARANDA General Instructions VisitID: [id number] [place] [address] 31y, F Registration Date/Time: 06/11/2016 Complete spontaneous (miscarriage). INSTRUCTIONS No driving or operating machinery while taking medication. Sedative medication was given during your visit. Drink plenty of fluids. Warnings: Further evaluation is necessary. GENERAL WARNINGS: Return or contact your physician immediately if your condition worsens or changes unexpectedly, if not improving as expected, or if other problems arise. Prescription Medications: Tylenol with Codeine #3 (30 mg / 300 mg): take 1 tablet every 4 hours as needed for pain. Dispense fifteen (15). No refills. Substitution is permissible. Follow-up: Follow up with your doctor Dr. Gabriella Carrion - [address] [place] [id number] Phone: Tuesday in three days. Call for an appointment. Understanding of the discharge instructions verbalized by patient. ADDITIONAL INFORMATION Miscarriage, Spontaneous (Completed) Todays exam shows that your has ended suddenly. While this may be an emotionally difficult time for you, know that it is not an uncommon event. A miscarriage can be due to various causes. These include a problem with the babys chromosomes (genes that carry the information needed for life) or with fertilization or implantation that didnt happen correctly. In most cases no cause can be found. Be assured that this miscarriage was not the result of anything that you did wrong, and it will not interfere with your ability to become in the future. It appears that your miscarriage is complete and all tissue from the has passed. If there are parts of the tissue that remain in the uterus, you will probably have more cramping and bleeding. Home Care: You may resume normal activities if you are not having heavy bleeding or pain. Until the bleeding stops completely and to prevent infection: Do not have sexual intercourse for as long as your healthcare provider tells you. Use sanitary pads instead of tampons. Do not douche. If you feel sadness or grief, it may help to talk about your feelings with family and friends, or with a counselor. Follow Up: Make an appointment to see your doctor in the next one to two weeks for a checkup. If cramping and bleeding return and continue for more than a few days, call your doctor or return here for an exam. The doctor may need to remove remaining tissue from the uterus to stop the bleeding and prevent infection. Or, you may be prescribed medication to take at home to help your body expel the remaining tissue. Note: If you had an ultrasound it will be reviewed by a specialist. You will be notified of any new findings that may affect your care. Get Prompt Medical Attention if any of the following occur: Heavy bleeding (soaking one new pad an hour over three hours) Bleeding that does not stop after ten days Foul-smelling vaginal discharge Fever of 100.4F (38C) or higher, or as directed by your healthcare provider Increasing lower abdominal pain Weakness, dizziness, or fainting Acetaminophen, Codeine Phosphate Oral tablet What is this medicine? ACETAMINOPHEN; CODEINE (a set a MELIA kaur fen; KOE digna) is a pain reliever. It is used to treat mild to moderate pain. How should I use this medicine? Take this medicine by mouth with a full glass of water. Follow the directions on the prescription label. If the medicine upsets your stomach, take the medicine with food or milk. Do not take more medicine than you are told to take. Talk to your legal office administrator regarding the use of this medicine in children. Special care may be needed. What side effects may I notice from receiving this medicine? Side effects that you should report to your doctor or health health care / medical job titles as soon as possible: allergic reactions like skin rash, itching or hives, swelling of the face, lips, or tongue breathing difficulties, wheezing confusion light headedness or fainting spells severe stomach pain yellowing of the skin or the whites of the eyes Side effects that usually do not require medical attention (report to your doctor or health health care / medical job titles if they continue or are bothersome): dizziness drowsiness nausea, vomiting What may interact with this medicine? alcohol antihistamines benztropine drugs for bladder problems like solifenacin, trospium, oxybutynin, tolterodine, hycosamine, and methscopolamine drugs for breathing problems like ipratropium and tiotropium drugs for certain stomach or intestine problems like propantheline, homatropine methylbromide, glycopyrrolate, atropine, belladonna, and dicyclomine medicines for depression, anxiety, or psychotic disturbances medicines for sleep muscle relaxants naltrexone narcotic medicines (opiates) for pain phenothiazines like perphenazine, thioridazine, chlorpromazine, mesoridazine, fluphenazine, prochlorperazine, promazine, trifluoperazine scopolamine tramadol trihexyphenidyl What if I miss a dose? If you miss a dose, take it as soon as you can. If it is almost time for your next dose, take only that dose. Do not take double or extra doses. Where should I keep my medicine? Keep out of the reach of children. This medicine can be abused. Keep your medicine in a safe place to protect it from theft. Do not share this medicine with anyone. Selling or giving away this medicine is dangerous and against the law. Store at room temperature between 15 and 30 degrees C (59 and 86 degrees F). Protect from light. Keep container tightly closed. Throw away any unused medicine after the expiration date. Discard unused medicine and used packaging carefully. Pets and children can be harmed if they find used or lost packages. What should I tell my health care provider before I take this medicine? They need to know if you have any of these conditions: brain tumor Crohn's disease, inflammatory bowel disease, or ulcerative colitis drink more than 3 alcohol containing drinks per day drug abuse or addiction head injury heart or circulation problems kidney disease or problems going to the bathroom liver disease lung disease, asthma, or breathing problems an unusual or allergic reaction to acetaminophen, codeine, salicylates, other opioid analgesics, other medicines, foods, dyes, or preservatives or trying to get breast-feeding What should I watch for while using this medicine? Tell your doctor or health health care / medical job titles if your pain does not go away, if it gets worse, or if you have new or a different type of pain. You may develop tolerance to the medication. Tolerance means that you will need a higher dose of the medication for pain relief. Tolerance is normal and is expected if you take the medicine for a long time. Do not suddenly stop taking your medicine because you may develop a severe reaction. Your body becomes used to the medicine. This does NOT mean you are addicted. Addiction is a behavior related to getting and using a drug for a non medical reason. If you have pain, you have a medical reason to take pain medicine. Your doctor will tell you how much medicine to take. If your doctor wants you to stop the medicine, the dose will be slowly lowered over time to avoid any side effects. You may get drowsy or dizzy. Do not drive, use machinery, or do anything that needs mental alertness until you know how this medicine affects you. Do not stand or sit up quickly, especially if you are an older patient. This reduces the risk of dizzy or fainting spells. Alcohol may interfere with the effect of this medicine. Avoid alcoholic drinks. There are different types of narcotic medicines (opiates) for pain. If you take more than one type at the same time, you may have more side effects. Give your health care provider a list of all medicines you use. Your doctor will tell you how much medicine to take. Do not take more medicine than directed. Call emergency for help if you have problems breathing. The medicine will cause constipation. Try to have a bowel movement at least every 2 to 3 days. If you do not have a bowel movement for 3 days, call your doctor or health health care / medical job titles. Do not take Tylenol (acetaminophen) or medicines that have acetaminophen with this medicine. Too much acetaminophen can be very dangerous. Many nonprescription medicines contain acetaminophen. Always read the labels carefully to avoid taking more acetaminophen. Immediately call your physician or get emergency help if you are breast-feeding and your baby is sleepier than usual, is limp, or has difficulty or breathing. You have been given the following additional information: Miscarriage, Spontaneous (Completed) Acetaminophen, Codeine Phosphate Oral tablet No driving or operating machinery while taking medication. Sedative medication was given during your visit. (Electronically signed by Juan Francisco Abdi MD 06/15/2016 23:19)
--- NOTE | 2016-06-15 23:19 | ED MAR SUMMARY ---
..... Medication Administration Record [facility] [address] [address] Patient: SAMI ARANDA Visit ID: [id number] 31y, F Weight: 77.1 kg Height/Length: 67 in BMI: 26.6 ALLERGIES: No Known Drug Allergy Given 15:06/11/2016 Charo Cesar R.N. Medication Administered: DILAUDID [IVP] (HYDROMORPHONE HCL PF), Dose: 0.5 mg IVP over 1 minute(s), Site: #1 right AC. Medication Ordered: Dilaudid IV 0.5 mg (HIGH ALERT MEDICATION, NOW). Given 15:06/11/2016 Chrao Cesar R.N. Medication Administered: ZOFRAN [IVP] (ONDANSETRON HCL), Dose: 4 mg IVP over 1 minute(s), Site: #1 right AC. Medication Ordered: Zofran IV 4 mg (NOW). Given 15:06/11/2016 Cat Callahan R.N. Medication Administered: DILAUDID [IVP] (HYDROMORPHONE HCL PF), Dose: 0.5 mg IVP over 1 minute(s), Site: #1 right AC. Medication Ordered: Dilaudid IV 0.5 mg (HIGH ALERT MEDICATION, NOW).
--- NOTE | 2016-06-15 23:19 | ED DISCHARGE INSTRUCTIONS ---
Patient: SAMI ARANDA General Instructions [facility] VisitID: [id number] [place] [address] 31y, F Registration Date/Time: 06/11/2016 Complete spontaneous (miscarriage). INSTRUCTIONS No driving or operating machinery while taking medication. Sedative medication was given during your visit. Drink plenty of fluids. Warnings: Further evaluation is necessary. GENERAL WARNINGS: Return or contact your physician immediately if your condition worsens or changes unexpectedly, if not improving as expected, or if other problems arise. Prescription Medications: Tylenol with Codeine #3 (30 mg / 300 mg): take 1 tablet every 4 hours as needed for pain. Dispense fifteen (15). No refills. Substitution is permissible. Follow-up: Follow up with your doctor Dr. Gabriella Carrion - [address] [place] [phone] Phone: Tuesday in three days. Call for an appointment. Understanding of the discharge instructions verbalized by patient. ADDITIONAL INFORMATION Miscarriage, Spontaneous (Completed) Todays exam shows that your has ended suddenly. While this may be an emotionally difficult time for you, know that it is not an uncommon event. A miscarriage can be due to various causes. These include a problem with the babys chromosomes (genes that carry the information needed for life) or with fertilization or implantation that didnt happen correctly. In most cases no cause can be found. Be assured that this miscarriage was not the result of anything that you did wrong, and it will not interfere with your ability to become in the future. It appears that your miscarriage is complete and all tissue from the has passed. If there are parts of the tissue that remain in the uterus, you will probably have more cramping and bleeding. Home Care: You may resume normal activities if you are not having heavy bleeding or pain. Until the bleeding stops completely and to prevent infection: Do not have sexual intercourse for as long as your healthcare provider tells you. Use sanitary pads instead of tampons. Do not douche. If you feel sadness or grief, it may help to talk about your feelings with family and friends, or with a counselor. Follow Up: Make an appointment to see your doctor in the next one to two weeks for a checkup. If cramping and bleeding return and continue for more than a few days, call your doctor or return here for an exam. The doctor may need to remove remaining tissue from the uterus to stop the bleeding and prevent infection. Or, you may be prescribed medication to take at home to help your body expel the remaining tissue. Note: If you had an ultrasound it will be reviewed by a specialist. You will be notified of any new findings that may affect your care. Get Prompt Medical Attention if any of the following occur: Heavy bleeding (soaking one new pad an hour over three hours) Bleeding that does not stop after ten days Foul-smelling vaginal discharge Fever of 100.4F (38C) or higher, or as directed by your healthcare provider Increasing lower abdominal pain Weakness, dizziness, or fainting Acetaminophen, Codeine Phosphate Oral tablet What is this medicine? ACETAMINOPHEN; CODEINE (a set a MELIA kaur fen; KOE digna) is a pain reliever. It is used to treat mild to moderate pain. How should I use this medicine? Take this medicine by mouth with a full glass of water. Follow the directions on the prescription label. If the medicine upsets your stomach, take the medicine with food or milk. Do not take more medicine than you are told to take. Talk to your lehr cutter regarding the use of this medicine in children. Special care may be needed. What side effects may I notice from receiving this medicine? Side effects that you should report to your doctor or health rental boats caretaker as soon as possible: allergic reactions like skin rash, itching or hives, swelling of the face, lips, or tongue breathing difficulties, wheezing confusion light headedness or fainting spells severe stomach pain yellowing of the skin or the whites of the eyes Side effects that usually do not require medical attention (report to your doctor or health rental boats caretaker if they continue or are bothersome): dizziness drowsiness nausea, vomiting What may interact with this medicine? alcohol antihistamines benztropine drugs for bladder problems like solifenacin, trospium, oxybutynin, tolterodine, hycosamine, and methscopolamine drugs for breathing problems like ipratropium and tiotropium drugs for certain stomach or intestine problems like propantheline, homatropine methylbromide, glycopyrrolate, atropine, belladonna, and dicyclomine medicines for depression, anxiety, or psychotic disturbances medicines for sleep muscle relaxants naltrexone narcotic medicines (opiates) for pain phenothiazines like perphenazine, thioridazine, chlorpromazine, mesoridazine, fluphenazine, prochlorperazine, promazine, trifluoperazine scopolamine tramadol trihexyphenidyl What if I miss a dose? If you miss a dose, take it as soon as you can. If it is almost time for your next dose, take only that dose. Do not take double or extra doses. Where should I keep my medicine? Keep out of the reach of children. This medicine can be abused. Keep your medicine in a safe place to protect it from theft. Do not share this medicine with anyone. Selling or giving away this medicine is dangerous and against the law. Store at room temperature between 15 and 30 degrees C (59 and 86 degrees F). Protect from light. Keep container tightly closed. Throw away any unused medicine after the expiration date. Discard unused medicine and used packaging carefully. Pets and children can be harmed if they find used or lost packages. What should I tell my health care provider before I take this medicine? They need to know if you have any of these conditions: brain tumor Crohn's disease, inflammatory bowel disease, or ulcerative colitis drink more than 3 alcohol containing drinks per day drug abuse or addiction head injury heart or circulation problems kidney disease or problems going to the bathroom liver disease lung disease, asthma, or breathing problems an unusual or allergic reaction to acetaminophen, codeine, salicylates, other opioid analgesics, other medicines, foods, dyes, or preservatives or trying to get breast-feeding What should I watch for while using this medicine? Tell your doctor or health rental boats caretaker if your pain does not go away, if it gets worse, or if you have new or a different type of pain. You may develop tolerance to the medication. Tolerance means that you will need a higher dose of the medication for pain relief. Tolerance is normal and is expected if you take the medicine for a long time. Do not suddenly stop taking your medicine because you may develop a severe reaction. Your body becomes used to the medicine. This does NOT mean you are addicted. Addiction is a behavior related to getting and using a drug for a non medical reason. If you have pain, you have a medical reason to take pain medicine. Your doctor will tell you how much medicine to take. If your doctor wants you to stop the medicine, the dose will be slowly lowered over time to avoid any side effects. You may get drowsy or dizzy. Do not drive, use machinery, or do anything that needs mental alertness until you know how this medicine affects you. Do not stand or sit up quickly, especially if you are an older patient. This reduces the risk of dizzy or fainting spells. Alcohol may interfere with the effect of this medicine. Avoid alcoholic drinks. There are different types of narcotic medicines (opiates) for pain. If you take more than one type at the same time, you may have more side effects. Give your health care provider a list of all medicines you use. Your doctor will tell you how much medicine to take. Do not take more medicine than directed. Call emergency for help if you have problems breathing. The medicine will cause constipation. Try to have a bowel movement at least every 2 to 3 days. If you do not have a bowel movement for 3 days, call your doctor or health rental boats caretaker. Do not take Tylenol (acetaminophen) or medicines that have acetaminophen with this medicine. Too much acetaminophen can be very dangerous. Many nonprescription medicines contain acetaminophen. Always read the labels carefully to avoid taking more acetaminophen. Immediately call your physician or get emergency help if you are breast-feeding and your baby is sleepier than usual, is limp, or has difficulty or breathing. You have been given the following additional information: Miscarriage, Spontaneous (Completed) Acetaminophen, Codeine Phosphate Oral tablet No driving or operating machinery while taking medication. Sedative medication was given during your visit. (Electronically signed by Juan Francisco Abdi MD 06/15/2016 23:19)
--- NOTE | 2016-06-15 23:19 | ED MAR SUMMARY ---
..... Medication Administration Record [facility] [address] [place] [address] Patient: SAMI ARANDA Visit ID: [id number] 31y, F Weight: 77.1 kg Height/Length: 67 in BMI: 26.6 ALLERGIES: No Known Drug Allergy Given 15:06/11/2016 Charo Cesar R.N. Medication Administered: DILAUDID [IVP] (HYDROMORPHONE HCL PF), Dose: 0.5 mg IVP over 1 minute(s), Site: #1 right AC. Medication Ordered: Dilaudid IV 0.5 mg (HIGH ALERT MEDICATION, NOW). Given 15:06/11/2016 Charo Cesar R.N. Medication Administered: ZOFRAN [IVP] (ONDANSETRON HCL), Dose: 4 mg IVP over 1 minute(s), Site: #1 right AC. Medication Ordered: Zofran IV 4 mg (NOW). Given 15:06/11/2016 Cat Callahan R.N. Medication Administered: DILAUDID [IVP] (HYDROMORPHONE HCL PF), Dose: 0.5 mg IVP over 1 minute(s), Site: #1 right AC. Medication Ordered: Dilaudid IV 0.5 mg (HIGH ALERT MEDICATION, NOW).
--- NOTE | 2016-06-15 23:19 | ED MED RECONCILIATION SUMMARY ---
Patient: SAMI ARANDA Medication Reconciliation Report [facility] VisitID: [id number] [address] [place] [place] [address] 31y, F Registration Date/Time: 06/11/2016 Weight: 77.1 kg Height/Length: 67 in. BMI: 26.6 ALLERGIES: No Known Drug Allergy The patient's Home Medications are listed below: THE FOLLOWING MEDICATIONS NEED TO BE RECONCILED: TraZODone HCl Oral 25mg , at bedtime Zoloft Oral 50 mg, daily The source(s) of the original Home Medication information: Not obtained. The following Medications were given to the patient in the Emergency Department: Dilaudid [IVP] IVP 0.5 mg, administered: 06/11/2016 3:06:00 PM Zofran [IVP] IVP 4 mg, administered: 06/11/2016 3:06:00 PM Dilaudid [IVP] IVP 0.5 mg, administered: 06/11/2016 3:49:00 PM The following Medications were prescribed to the patient: Tylenol with Codeine #3 (30 mg / 300 mg): take 1 tablet every 4 hours as needed for pain. Dispense fifteen (15). No refills. Substitution is permissible. -- Juan Francisco Abdi MD
--- NOTE | 2016-06-15 23:19 | ED MED RECONCILIATION SUMMARY ---
Patient: SAMI ARANDA Medication Reconciliation Report [facility] VisitID: [id number] [address] [place] [address] 31y, F Registration Date/Time: 06/11/2016 Weight: 77.1 kg Height/Length: 67 in. BMI: 26.6 ALLERGIES: No Known Drug Allergy The patient's Home Medications are listed below: THE FOLLOWING MEDICATIONS NEED TO BE RECONCILED: TraZODone HCl Oral 25mg , at bedtime Zoloft Oral 50 mg, daily The source(s) of the original Home Medication information: Not obtained. The following Medications were given to the patient in the Emergency Department: Dilaudid [IVP] IVP 0.5 mg, administered: 06/11/2016 3:06:00 PM Zofran [IVP] IVP 4 mg, administered: 06/11/2016 3:06:00 PM Dilaudid [IVP] IVP 0.5 mg, administered: 06/11/2016 3:49:00 PM The following Medications were prescribed to the patient: Tylenol with Codeine #3 (30 mg / 300 mg): take 1 tablet every 4 hours as needed for pain. Dispense fifteen (15). No refills. Substitution is permissible. -- Juan Francisco Abdi MD
== END 2016-06-11 16:50 | disposition home or self-care (01) ==
LOC: ED SRH 13:34
DX: O03.9 Complete or unspecified spontaneous abortion without complication (principal)
CPT/HCPCS: 90001; 90004; 90100; 90155; 90195; 90197; 91227; 91228; 92235; 92530; 94001; 94060; 95059